=== PATIENT | male | born 1975 | race Caucasian/White ===

== ENCOUNTER 2018-06-13 15:26 | Emergency (ER) | payer BC ==
[~2018-06-13] VITALS: Ht 175.3 cm; Wt 113.4 kg
[2018-06-13] MEDS ORDERED: fentaNYL INJECTION 100 MCG/2 ML AMP IVP ONE (15:45)
[2018-06-13] MEDS ORDERED: KETOROLAC 30 MG/ML VIAL IVP ONE (15:45)
[2018-06-13] MEDS ORDERED: ONDANSETRON 4 MG/2 ML (SDV) Z0FRAN IVP ONE (15:45)
[2018-06-13] MEDS ORDERED: NS IV 1000 ML 1,000 ML IV SCH (15:45)
[2018-06-13 15:52] LABS: BASOPHILS % (AUTO) 0 % (0-10); EOSINOPHILS % (AUTO) 0 % (0-10); HEMATOCRIT 42 % (40-54); HEMOGLOBIN 15.1 G/DL (13.3-17.7); LYMPHOCYTES # (AUTO) 1.1 X 10^3 (1.0-4.0); LYMPHOCYTES % (AUTO) 8 % (12-44); MEAN CORPUSCULAR HEMOGLOBIN 32 PG (25-34); MEAN CORPUSCULAR HGB CONC 36 G/DL (32-36); MEAN CORPUSCULAR VOLUME 90 FL (80-99); MEAN PLATELET VOLUME 9.7 FL (7.4-10.4); MONOCYTES # (AUTO) 0.5 X 10^3 (0.0-1.0); MONOCYTES % (AUTO) 4 % (0-12); NEUTROPHILS # (AUTO) 12.8 X 10^3 (1.8-7.8); NEUTROPHILS % (AUTO) 89 % (42-75); PLATELET COUNT 296 10^3/uL (130-400); RED BLOOD COUNT 4.71 10^6/uL (4.35-5.85); RED CELL DISTRIBUTION WIDTH 14.6 % (10.0-14.5); WHITE BLOOD COUNT 14.5 10^3/uL (4.3-11.0)
[2018-06-13 16:09] LABS: BAND NEUTROPHILS 0 %; BASOPHILS % (MANUAL) 0 %; EOSINOPHILS % (MANUAL) 0 %; LYMPHOCYTES % (MANUAL) 10 %; MONOCYTES % (MANUAL) 1 %; NEUTROPHILS % (MANUAL) 89 %; RBC MORPH NORMAL
[2018-06-13 16:12] LABS: ALANINE AMINOTRANSFERASE 26 U/L (0-55); ALBUMIN 4.8 GM/DL (3.2-4.5); ALKALINE PHOSPHATASE 75 U/L (40-136); BILIRUBIN,TOTAL 0.6 MG/DL (0.1-1.0); BUN/CREATININE RATIO 11; CALCIUM 9.9 MG/DL (8.5-10.1); CARBON DIOXIDE 23 MMOL/L (21-32); CHLORIDE 104 MMOL/L (98-107); CREATININE SERUM 1.31 MG/DL (0.60-1.30); GFR ESTIMATED 60; GLUCOSE 101 MG/DL (70-105); POTASSIUM 4.3 MMOL/L (3.6-5.0); SODIUM 139 MMOL/L (135-145); TOTAL PROTEIN 7.8 GM/DL (6.4-8.2)
--- NOTE | 2018-06-13 16:33 | Diagnostic Imaging Report ---
INDICATION: Right flank pain. KUB at 4:43 PM FINDINGS: Bowel gas pattern is normal. There are small round calcifications in the pelvis which are probably phleboliths. There are no masses seen. IMPRESSION: No acute abnormalities in the abdomen. Dictated by: Dictated on workstation # [id number]
--- NOTE | 2018-06-13 16:38 | Diagnostic Imaging Report ---
PROCEDURE: CT urinary tract, rule out kidney stone. TECHNIQUE: Multiple contiguous axial images were obtained through the abdomen and pelvis without the use of intravenous contrast. INDICATION: Nausea, emesis and right flank pain. Comparison is made to study of 04/12/2012. FINDINGS: Unenhanced images of the liver and spleen reveal no focal abnormality. Gallbladder, pancreas and adrenal glands are stable and unremarkable in appearance. There has been an increase in size of nonobstructing calculus in the central portion of the left kidney which reaches 0.4 cm. Minimal calculus is seen within the lower pole calyx of the right kidney with mild right hydronephrosis and hydroureter to the level of an approximately 0.5 cm stone at the right ureterovesical junction. This protrudes into the lumen of the bladder. There is also mild calcification in the left lobe of the prostate gland. Otherwise, there is no evidence of free fluid within the abdomen or pelvis. No organized fluid collection is seen. No other significant change is identified. IMPRESSION: 1. Probable high-grade obstruction of right ureter at the level of the ureterovesical junction from 0.5 cm stone which protrudes into the lumen of the bladder. 2. In addition, there are additional nonobstructing bilateral renal calculi with mild right hydronephrosis and hydroureter. Dictated by: Dictated on workstation # [id number]
[2018-06-13] MEDS ORDERED: ACHD5005 PO (17:14)
[2018-06-13] MEDS ORDERED: SULF1TAB35 PO (17:14)
[2018-06-13] MEDS ORDERED: ONDA4TAB8 SL (17:14)
--- NOTE | 2018-06-13 17:14 | ED Back Pain ---
General Chief Complaint: Back Problems Stated Complaint: PAIN IN RIGHT SIDE OF ABD Nursing Triage Note: PT CO OF KIDNEYSTONE PAIN ON R FLANK AND BACK STARTED THIS AM Nursing Sepsis Screen: No Definite Risk Source of Information: Patient, Family () Exam Limitations: No Limitations History of Present Illness Date Seen by Provider: Jun 13, 2018 Time Seen by Provider: 15:40 Initial Comments Patient is a 42 year old male patient who presents to the emergency room with complaints of right flank pain and nausea started this morning at 0500. He has a history of kidney stones. Timing/Duration: 12 Hours Pain/Injury Location: Back Radiation: Other (right flank) Associated Symptoms: lower back pain Allergies and Home Medications Allergies Coded Allergies: No Known Drug Allergies (Verified Allergy, Unknown, 06/07/08) Home Medications Hydrocodone Bit/Acetaminophen 1 Tab Tab, 1-2 EACH PO Q6H PRN for PAIN-MODERATE Prescribed by: JIE OVIEDO on 06/13/181713 Ondansetron 4 Mg Tab.rapdis, 4 MG SL Q4H PRN for NAUSEA/VOMITING-1ST LINE Prescribed by: JIE OVIEDO on 06/13/181713 Sulfamethoxazole/Trimethoprim 1 Each Tablet, 1 EACH PO BID Prescribed by: JIE OVIEDO on 06/13/181713 Patient Home Medication List Home Medication List Reviewed: Yes Review of Systems Constitutional: see HPI; No chills; diaphoresis; No fever Gastrointestinal: see HPI, nausea, vomiting Genitourinary: see HPI, other All Other Systems Reviewed Negative Unless Noted: Yes Past Dvcebll-Yhryxj-Ftgxmr Hx Past Med/Social Hx: Reviewed Nursing Past Med/Soc Hx Patient Social History Alcohol Use: Occasionally Uses Recreational Drug Use: No Smoking Status: Never a Smoker Recent Foreign Travel: No Contact w/Someone Who Travel: No Recent Infectious Disease Expo: No Recent Hopitalizations: No Past Medical History Surgeries: Yes (KIDNEY STONE) Tonsillectomy Respiratory: No Cardiac: No Genitourinary: Yes Kidney Stones Gastrointestinal: No Musculoskeletal: No Endocrine: No Cancer: No Psychosocial: No Integumentary: No Blood Disorders: No Adverse Reaction/Blood Tranf: No Family Medical History Reviewed Nursing Family Hx Physical Exam Vital Signs Vital Signs - First Documented 06/13/18 15:40 Temp 97.4 Pulse 88 Resp 18 B/P (MAP) 150/96 (114) Pulse Ox 100 Capillary Refill : Less Than 3 Seconds Height, Weight, BMI Height: 5'9.00" Weight: 250lbs. oz. 113.750179fk; BMI Method:Stated General Appearance: No Apparent Distress, WD/WN Neck: Full Range of Motion, Normal Inspection, Non Tender, Supple Cardiovascular: Regular Rate, Rhythm, No Edema, No Gallop, No JVD, No Murmur, Normal Peripheral Pulses Respiratory: Chest Non Tender, Lungs Clear, Normal Breath Sounds, No Accessory Muscle Use, No Respiratory Distress, Accessory Muscle Use Gastrointestinal: Normal Bowel Sounds, No Organomegaly, No Pulsatile Mass, Non Tender, Soft Extremity: Normal Capillary Refill Neurologic/Psychiatric: Alert, Oriented x3 Skin: Normal Color, Warm/Dry Progress/Results/Core Measures Results/Orders Lab Results Laboratory Tests Test 06/13/18 15:40 06/13/18 17:10 Range/Units White Blood Count 14.5 H 4.3-11.0 10^3/uL Red Blood Count 4.71 4.35-5.85 10^6/uL Hemoglobin 15.1 13.3-17.7 G/DL Hematocrit 42 40-54 % Mean Corpuscular Volume 90 80-99 FL Mean Corpuscular Hemoglobin 32 25-34 PG Mean Corpuscular Hemoglobin Concent 36 32-36 G/DL Red Cell Distribution Width 14.6 H 10.0-14.5 % Platelet Count 296 130-400 10^3/uL Mean Platelet Volume 9.7 7.4-10.4 FL Neutrophils (%) (Auto) 89 H 42-75 % Lymphocytes (%) (Auto) 8 L 12-44 % Monocytes (%) (Auto) 4 0-12 % Eosinophils (%) (Auto) 0 0-10 % Basophils (%) (Auto) 0 0-10 % Neutrophils # (Auto) 12.8 H 1.8-7.8 X 10^3 Lymphocytes # (Auto) 1.1 1.0-4.0 X 10^3 Monocytes # (Auto) 0.5 0.0-1.0 X 10^3 Eosinophils # (Auto) 0.0 0.0-0.3 10^3/uL Basophils # (Auto) 0.0 0.0-0.1 10^3/uL Neutrophils % (Manual) 89 % Lymphocytes % (Manual) 10 % Monocytes % (Manual) 1 % Eosinophils % (Manual) 0 % Basophils % (Manual) 0 % Band Neutrophils 0 % Blood Morphology Comment NORMAL Sodium Level 139 135-145 MMOL/L Potassium Level 4.3 3.6-5.0 MMOL/L Chloride Level 104 98-107 MMOL/L Carbon Dioxide Level 23 21-32 MMOL/L Anion Gap 12 5-14 MMOL/L Blood Urea Nitrogen 14 7-18 MG/DL Creatinine 1.31 H 0.60-1.30 MG/DL Estimat Glomerular Filtration Rate 60 BUN/Creatinine Ratio 11 Glucose Level 101 70-105 MG/DL Calcium Level 9.9 8.5-10.1 MG/DL Corrected Calcium 8.5-10.1 MG/DL Total Bilirubin 0.6 0.1-1.0 MG/DL Aspartate Amino Transf (AST/SGOT) 24 5-34 U/L Alanine Aminotransferase (ALT/SGPT) 26 0-55 U/L Alkaline Phosphatase 75 40-136 U/L Total Protein 7.8 6.4-8.2 GM/DL Albumin 4.8 H 3.2-4.5 GM/DL Urine Color YELLOW Urine Clarity CLEAR Urine pH 6 5-9 Urine Specific [place] 1.015 L 1.016-1.022 Urine Protein 1+ H NEGATIVE Urine Glucose (UA) NEGATIVE NEGATIVE Urine Ketones 1+ H NEGATIVE Urine Nitrite NEGATIVE NEGATIVE Urine Bilirubin NEGATIVE NEGATIVE Urine Urobilinogen 1 NORMAL MG/DL Urine Leukocyte Esterase NEGATIVE NEGATIVE Urine RBC (Auto) 5+ H NEGATIVE Urine RBC 10-25 H /HPF Urine WBC NONE /HPF Urine Squamous Epithelial Cells NONE /HPF Urine Crystals NONE /LPF Urine Bacteria NEGATIVE /HPF Urine Casts NONE /LPF Urine Mucus SMALL H /LPF Urine Culture Indicated NO My Orders Orders - JIE OVIEDO Ct Abd/Pelvis Wo(Kidney Stone) (06/13/18 15:37) Abdomen/Kub 1view (06/13/18 15:37) Saline Lock/Iv-Start (06/13/18 15:37) Ns Iv 1000 Ml (Sodium Chloride 0.9%) (06/13/18 15:45) Ketorolac Injection (Toradol Injection) (06/13/18 15:45) Ondansetron Injection (Zofran Injectio (06/13/18 15:45) Cbc With Automated Diff (06/13/18 15:37) Comprehensive Metabolic Panel (06/13/18 15:37) Ua Culture If Indicated (06/13/18 15:37) Fentanyl Injection (Sublimaze Injection (06/13/18 15:45) Manual Differential (06/13/18 15:40) Medications Given in ED Current Medications Medications Dose Ordered Sig/Annie Route Start Time Stop Time Status Last Admin Dose Admin Fentanyl Citrate 50 mcg ONCE ONCE IVP 06/13/18 15:45 06/13/18 15:46 DC 06/13/18 15:52 50 MCG Ketorolac Tromethamine 30 mg ONCE ONCE IVP 06/13/18 15:45 06/13/18 15:46 DC 06/13/18 15:45 30 MG Ondansetron HCl 8 mg ONCE ONCE IVP 06/13/18 15:45 06/13/18 15:46 DC 06/13/18 15:45 8 MG Vital Signs/I&O 06/13/18 06/13/18 15:40 17:33 Temp 97.4 Pulse 88 76 Resp 18 18 B/P (MAP) 150/96 (114) 136/82 (100) Pulse Ox 100 100 Blood Pressure Mean: 114 Progress Progress Note : Time: 17:00 Progress Note I have seen and evaluated the patient.I have spoke to Dr. Gilbert at this time. He agrees to see the patient in his office at 1445 tomorrow in his office. I have informed him of CT findings, plans for follow up tomorrow with Dr. Gilbert, return precautions were given. Voices no questions or concerns. Diagnostic Imaging Diagonstic Imaging: Xray, CT Plain Films/CT/US/NM/MRI: abdomen Comments NAME: MARCUS SWIFT MED REC#: [id number] PHYSICIAN: JIE OVIEDO CC: MILAD SALINAS MD; JIE OVIEDO Page 1 of 1 RADIOLOGY REPORT VIA [facility], [place], [place] CC: MILAD SALINAS MD; JIE OVIEDO Page 1 of 1 RADIOLOGY REPORT NAME: MARCUS SWIFT MED REC#: [id number] PT STATUS: DEP ER : 1975 PHYSICIAN: JIE OVIEDO ADMIT DATE: 06/13/18/ER Signed Date of Exam: 06/13/18 ABDOMEN/KUB 1VIEW INDICATION: Right flank pain. KUB at 4:43 PM FINDINGS: Bowel gas pattern is normal. There are small round calcifications in the pelvis which are probably phleboliths. There are no masses seen. IMPRESSION: No acute abnormalities in the abdomen. Dictated by: Dictated on workstation # [id number] Dict: 06/13/18 1630 Trans: 06/13/18 173 Interpreted by: MILAD SALINAS MD Electronically signed by: MILAD SALINAS MD 06/13/181733 NAME: MARCUS SWIFT [facility] REC#: [id number] PHYSICIAN: JIE OVIEDO CC: JIE OVIEDO; SHANTELLE PABLO MD Page 2 of 2 RADIOLOGY REPORT VIA [place], [place] CC: JIE OVIEDO; SHANTELLE PABLO MD Page 1 of 1 RADIOLOGY REPORT NAME: MARCUS SWIFT MED REC#: [id number] PT STATUS: REG ER : 1975 PHYSICIAN: JIE OVIEDO ADMIT DATE: 06/13/18/ER Signed Date of Exam: 06/13/18 CT ABD/PELVIS WO(KIDNEY STONE) PROCEDURE: CT urinary tract, rule out kidney stone. TECHNIQUE: Multiple contiguous axial images were obtained through the abdomen and pelvis without the use of intravenous contrast. INDICATION: Nausea, emesis and right flank pain. Comparison is made to study of 04/12/2012. FINDINGS: Unenhanced images of the liver and spleen reveal no focal abnormality. Gallbladder, pancreas and adrenal glands are stable and unremarkable in appearance. There has been an increase in size of nonobstructing calculus in the central portion of the left kidney which reaches 0.4 cm. Minimal calculus is seen within the lower pole calyx of the right kidney with mild right hydronephrosis and hydroureter to the level of an approximately 0.5 cm stone at the right ureterovesical junction. This protrudes into the lumen of the bladder. There is also mild calcification in the left lobe of the prostate gland. Otherwise, there is no evidence of free fluid within the abdomen or pelvis. No organized fluid collection is seen. No other significant change is identified. IMPRESSION: 1. Probable high-grade obstruction of right ureter at the level of the ureterovesical junction from 0.5 cm stone which protrudes into the lumen of the bladder. 2. In addition, there are additional nonobstructing bilateral renal calculi with mild right hydronephrosis and hydroureter. Dictated by: Dictated on workstation # [id number] Dict: 06/13/18 1630 Trans: 06/13/181718 Interpreted by: SHANTELLE PABLO MD Electronically signed by: SHANTELLE PABLO MD 06/13/181718 Reviewed: Reviewed by Me Departure Impression Primary Impression: Kidney stone Disposition: 01 HOME, SELF-CARE Condition: Stable/Unchanged Departure-Patient Inst. Decision time for Depature: 17:11 Referrals: NO,LOCAL PHYSICIAN (PCP) Primary Care Physician MADHU GILBERT MD Patient Instructions: Kidney Stones (DC) Add. Discharge Instructions: Take medications as directed. Follow-up with Dr. Gilbert tomorrow at 2:45 in his office. Return back to the emergency room for any worsening symptoms or concerns as needed. All discharge instructions reviewed with patient and/or family. Voiced understanding. Scripts Hydrocodone Bit/Acetaminophen (Hydrocodone/Acetaminophen 5/325mg Tablet) 1 Tab Tab 1-2 EACH PO Q6H PRN for PAIN-MODERATE MDD 10, #20 TAB Prov: JIE OVIEDO 06/13/18 Ondansetron (Zofran Odt) 4 Mg Tab.rapdis 4 MG SL Q4H PRN for NAUSEA/VOMITING-1ST LINE, #14 TAB Prov: JIE OVIEDO 06/13/18 Sulfamethoxazole/Trimethoprim (Bactrim Ds Tablet) 1 Each Tablet 1 EACH PO BID for 7 Days, #14 TAB Prov: JIE OVIEDO 06/13/18 Copy Copies To 1: MADHU GILBERT MD, TRAVIS Jun 13, 2018 17:14
[2018-06-13 17:20] LABS: BILIRUBIN,URINE NEGATIVE (NEGATIVE); CLARITY,URINE CLEAR; COLOR,URINE YELLOW; GLUCOSE, URINE (UA) NEGATIVE (NEGATIVE); KETONES,URINE 1+ (NEGATIVE); LEUKOCYTE ESTERASE ,URINE NEGATIVE (NEGATIVE); NITRITE,URINE NEGATIVE (NEGATIVE); PH,URINE 6 (5-9); PROTEIN,URINE 1+ (NEGATIVE); UROBILINOGEN,URINE 1 MG/DL (NORMAL)
[2018-06-13 17:33] VITALS: BP 136/82
[2018-06-13 17:34] LABS: BACTERIA,URINE NEGATIVE /HPF
== END 2018-06-13 17:33 | disposition home or self-care (01) ==
LOC: EDUNIT# 15:26 → ER 15:28
DX: N13.2 Hydronephrosis with renal and ureteral calculous obstruction (principal); Z90.89 Acquired absence of other organs
CPT/HCPCS: 36415; 74018; 74176; 80053; 81000; 85007; 85027; 96361; 96374; 96375